=== PATIENT | female | born 1940 | race Caucasian/White ===

== ENCOUNTER 2021-05-17 14:32 | Outpatient (CLI) | payer MEDICARE | END 2021-05-17 14:33 | disposition home or self-care (01) | LOC: CSHRAD 14:32 | PROVIDERS: ATTEND Internal Medicine Rheumatology | DX: M54.50 Low back pain, unspecified (principal); M54.6 Pain in thoracic spine; M47.816 Spondylosis without myelopathy or radiculopathy, lumbar region | CPT/HCPCS: 72072; 72100 ==

== ENCOUNTER 2023-10-05 13:46 | Outpatient (CLI) | payer MEDICARE | END 2023-10-05 13:47 | disposition home or self-care (01) | LOC: CSHMAMMO 13:46 | PROVIDERS: ATTEND Internal Medicine Rheumatology | DX: M81.0 Age-related osteoporosis without current pathological fracture (principal); M85.88 Other specified disorders of bone density and structure, other site; D63.1 Anemia in chronic kidney disease; N18.32 Chronic kidney disease, stage 3b; E83.119 Hemochromatosis, unspecified; Z79.899 Other long term (current) drug therapy | CPT/HCPCS: 36415; 77080; 82728; 83540; 83550 ==